=== PATIENT | female | born 2005 | race Two or more races ===

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

== ENCOUNTER 2025-01-08 01:13 | Emergency (ER) | payer OTHER ==
[~2025-01-08] VITALS: Ht 167.6 cm; Wt 54.5 kg
[~2025-01-08 01:13] MED LIST changes: -AZIT-164 PO; +BENZ-38 PO
[2025-01-08 01:40] VITALS: TEMP 98.5
[2025-01-08 03:29] LABS: D-DIMER < 0.19 MG/L FEU (0-0.50)
[2025-01-08] MEDS ORDERED: IBUP-1984 PO (03:34)
[2025-01-08] MEDS: acetaminophen 325mg tablet PO ONE (03:39)
[2025-01-08] MEDS: ibuprofen tablet 400 MG TABLET PO ONE (03:39)
[2025-01-08 03:45] VITALS: BP 99/55; PULSE 67; RESP 16; O2SAT 99
== END 2025-01-08 03:48 | disposition home or self-care (01) ==
LOC: ER 01:14
DX: S83.92XA Sprain of unspecified site of left knee, initial encounter (principal); F12.90 Cannabis use, unspecified, uncomplicated; Z91.040 Latex allergy status; X58.XXXA Exposure to other specified factors, initial encounter; Y93.89 Activity, other specified; Y92.89 Other specified places as the place of occurrence of the external cause; Y99.8 Other external cause status
CPT/HCPCS: 36415; 85379; 99283